=== PATIENT | female | born 1950 | race Caucasian/White ===

== ENCOUNTER 2017-05-01 15:34 | Emergency (ER) | payer OTHER ==
--- NOTE | 2017-05-01 16:28 | DIAGNOSTIC IMAGING REPORT ---
PROCEDURE: CT HEAD WITHOUT CONTRAST INDICATION: SYNCOPE TECHNIQUE: Axial CT images were acquired through the head. Coronal and sagittal reformations were created. COMPARISON: None. FINDINGS: No intracranial hemorrhage or extraaxial fluid collections. Ventricles are normal in size, shape and position. There is no mass, mass effect or midline shift. The brandon-white matter differentiation is normal. There is no edema. The calvarium is intact. The paranasal sinuses and mastoid air cells are normally aerated. The extracranial soft tissues and orbits are normal. IMPRESSION: 1. No CT evidence of acute intracranial process. 2. Findings discussed with Camilo at 04:[address] scans at this facility use dose modulation, iterative reconstruction, and/or weight-based dosing when appropriate to reduce radiation dose to as low as reasonably achievable.
--- NOTE | 2017-05-01 16:34 | DIAGNOSTIC IMAGING REPORT ---
PROCEDURE: XR CHEST 1 VIEW INDICATION: SYNCOPE TECHNIQUE: Single view chest. 1607 hours COMPARISON: None FINDINGS: Normal cardiomediastinal contour and central vessels. Clear lungs. No effusion or pneumothorax. Surgical clips in the left axilla. Intact osseous structures. IMPRESSION: 1. No evidence of acute cardiopulmonary disease.
--- NOTE | 2017-05-01 18:09 | DIAGNOSTIC IMAGING REPORT ---
PROCEDURE: ABDOMEN/PELVIS WITH CONTRAST CLINICAL INDICATION: ABDOMINAL PAIN TECHNIQUE: 125 ml of Isovue 300 were injected intravenously and axial images were obtained of the abdomen and pelvis with sagittal and coronal reformations. COMPARISON: None. FINDINGS: ABDOMEN: Clear lung bases. Heart size at the upper limits of normal. No hiatal hernia. The liver, gallbladder, adrenal glands, kidneys, pancreas and spleen are normal. Minor right renal parapelvic cyst in the lower pole. The abdominal aorta is normal in its course and caliber. Mild atherosclerosis. There are no suspicious calcifications, retroperitoneal adenopathy or masses. The stomach, upper bowel loops, and mesentery are normal. Intact anterior abdominal wall. No free fluid or inflammation. PELVIS: The appendix is not visible. The pelvic small bowel loops are normal. Normal amount of stool in the colon and rectum. The uterus (with a tiny exophytic fundal fibroid), ovaries, urinary bladder, and pelvic vessels are normal. No adenopathy or free fluid. Finger-like projection of low density material extending from the left external iliac/inguinal region into the femoral canal. This measures approximately 5.6 x 1.3 cm. Mild rightward curvature of the lumbar spine. Postsurgical changes of laminectomy and hardware fusion of L4-5. Chronic anterolisthesis L4 and L5. Degenerative disc endplate changes at L2-3 IMPRESSION: 1. No acute process. 2. Nonvisualization of the appendix. 3. Degeneration and postsurgical changes in the lumbar spine as described. 4. Probable small left femoral lymphocele or hernia. No inflammation. 5. Discussed with Dr. Page in the emergency room. All CT scans at this facility use dose modulation, iterative reconstruction, and/or weight-based dosing when appropriate to reduce radiation dose to as low as reasonably achievable.
--- NOTE | 2017-05-01 18:47 | ED ORDER SUMMARY ---
..... Patient: TAIWO SANCHEZ OrderSheet [facility] VisitID: [id number] [address] [place] [address] 66y, F Registration Date/Time: 05/01/2017 ORDER SHEET Weight: 70.3 kg (stated) Allergies: Sulfa, Penicillin, Penicillin, Tramadol, Amoxicillin, Codeine, Coxycycline, OxyContin, NSAIDs GENERAL ORDERS: Chest 1V Urgent (15:44 05/01/2017 Eliecer FAIRBANKS) (Ack 15:49 Maria De Jesus) (16:00 KKnejaylen R.N.) CT Head wo Cont Urgent (15:45 05/01/2017 Eliecer FAIRBANKS) (Ack 15:49 Maria De Jesus) (16:00 ARCHIEnejaylen R.N.) Chemical Waste Management Technician (Continuous) (15:45 05/01/2017 Eliecer FAIRBANKS) (Ack 16:03 Maria De Jesus) (16:15 Fideln R.N.) CBC w Diff Urgent (15:45 05/01/2017 Eliecer FAIRBANKS) (Ack 15:51 Maria De Jesus) (16:15 EHmariyan R.N.) CMP Urgent (15:45 05/01/2017 Eliecer FAIRBANKS) (Ack 15:51 Maria De Jesus) (16:15 EHassan R.N.) UA-Culture if indicated Urgent (15:45 05/01/2017 Eliecer FAIRBANKS) (Ack 15:49 Maria De Jesus) (16:31 Manish R.N.) Amylase Urgent (15:45 05/01/2017 Eliecer FAIRBANKS) (Ack 15:49 Maria De Jesus) (16:15 EHassan R.N.) Lipase Urgent (15:45 05/01/2017 Eliecer FAIRBANKS) (Ack 15:49 Maria De Jesus) (16:15 STEPHONassan R.N.) Oxygen (2 L/min) (NC) (15:45 05/01/2017 Eliecer FAIRBANKS) (Ack 16:03 Maria De Jesus) (16:15 EHassan R.N.) Pulse oximeter (15:45 05/01/2017 Eliecer FAIRBANKS) (Ack 16:03 Maria De Jesus) (16:15 EHassan R.N.) EKG - ER Stat (15:45 05/01/2017 Eliecer FAIRBANKS) (Ack 16:03 Maria De Jesus) (16:14 LNations ER Tech1) (16:15 Manish R.N.) Vitals - Orthostatic (15:45 05/01/2017 Eliecer FAIRBANKS) (Ack 16:03 Maria De Jesus) (16:15 EHassan R.N.) Urine Drug Screen Urgent (15:56 05/01/2017 Eliecer FAIRBANKS) (Ack 16:04 Maria De Jesus) (16:31 EHassan R.N.) Ethyl Alcohol Urgent (15:56 05/01/2017 Eliecer FAIRBANKS) (Ack 16:04 Maria De Jesus) (16:30 KKnebel R.N.) Acetaminophen Level Urgent (16:42 05/01/2017 Eliecer FAIRBANKS) (Ack 16:46 Maria De Jesus) (19:00 KKnebel R.N.) Salicylate Level Urgent (16:42 05/01/2017 Eliecer FAIRBANKS) (Ack 16:46 Maria De Jesus) (19:00 KKnebel R.N.) CT Abd/Pel w Cont (No) (See report) Urgent (17:08 05/01/2017 Eliecer FAIRBANKS) (Ack 17:09 Maria De Jesus) (19:00 KKnebel R.N.) MEDICATION ORDERS: KCl PO 20 meq (NOW) (18:20 05/01/2017 Eliecer FAIRBANKS) (18:46 KKnebel R.N.) IV FLUIDS: IV Saline Lock (15:45 05/01/2017 Eliecer FAIRBANKS) (16:15 Manish R.N.) IV NS : initial bolus 500 mL (1000 mL/hr), then 125 mL/hr for 4h (NOW); Urgent (17:06 05/01/2017 Eliecer FAIRBANKS) (17:18 KKnebel R.N.) ORDER SHEET NOTES: [Electronically signed by Miriam Orozco R.N. (19:05/01/2017)] [Electronically signed by Frank Page MD (21:36 05/01/2017)] [Electronically locked/signed by Miriam Orozco R.N. (19:01 05/01/2017)]
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
--- NOTE | 2017-05-01 18:47 | ED NURSING NOTES ---
Clinical Report - Nurses [facility] [address] [place] [address] 05/01/2017 15:33 Patient: TAIWO SANCHEZ TRIAGE Triage time 15:41 May 01 2017. Acuity: LEVEL 3. Chief Complaint: (syncopal episodes last night). Alert. No acute distress. [place]ER[place] COMA SCORE: [place] Coma Scale: 15- eyes open spontaneously (4); best verbal response- oriented x 4 (5); best motor response- obeys commands (6). --15:53 Miriam Orozco R.N. 15:41 05/01/17. BP: 163/72. HR: 99. RR: 20. O2 saturation: 100%. Temp: 100.9 F. Pain level now: 07/06. --15:53 Miriam Orozco R.N. Weight: 70.3 kg stated. Height/Length: 64 inches Per Patient. BMI: 26.6. --15:53 Miriam Orozco R.N. Medications Hydrocodone-Acetaminophen Oral. --15:43 Miriam Orozco R.N. HydrOXYzine HCl Intramuscular. --15:44 Miriam Orozco R.N. Gabapentin Oral. --15:44 Miriam Orozco R.N. Levothyroxine Sodium Oral. --15:44 Miriam Orozco R.N. Amphetamine-Dextroamphet ER Oral. --15:44 Miriam Orozco R.N. Dicyclomine HCl Oral. --15:44 Miriam Orozco R.N. FLUoxetine HCl Oral. --15:45 Miriam Orozco R.N. LORazepam Oral. --15:45 Miriam Orozco R.N. Tizanidine. --15:45 Miriam Orozco R.N. Multiple Vitamins. --15:45 Miriam Orozco R.N. Vitamin c. --15:45 Miriam Orozco R.N. Lansoprazole. --15:45 Miriam Orozco R.N. MethylPREDNISolone Oral. --15:46 Miriam Orozco R.N. Ondansetron. --15:46 Miriam Orozco R.N. Pantoprazole. --15:46 Miriam Orozco R.N. Oxybutynin. --15:46 Miriam Orozco R.N. Methocarbamol. --15:46 Miriam Orozco R.N. Allergies Sulfa. --15:47 Miriam Orozco R.N. Penicillin. --15:47 Miriam Orozco R.N. Penicillin. --15:47 Miriam Orozco R.N. Tramadol. --15:47 Miriam Orozco R.N. Amoxicillin. --15:47 Miriam Orozco R.N. Codeine. --15:47 Miriam Orozco R.N. Coxycycline. --15:48 Miriam Orozco R.N. OxyContin. --15:48 Miriam Orozco R.N. NSAIDs. --15:48 Miriam Orozco R.N. History Arrived by private vehicle. Historian: patient. This started last night. ( burning on tongue). She has had a headache and recent fall. Treatment MEDIA CLERK: None. --15:53 Miriam Orozco R.N. PAST MEDICAL HX: Immunizations: up-to-date. Denies current . SOCIAL HX: Never smoker. Occasional alcohol use. No drug use. No infectious disease exposure. SELF HARM ASSESSMENT: A self harm assessment was performed. The patient answered "no" to the question "Do you have thoughts of harming or killing yourself?". FALL RISK ASSESSMENT: Fall risk assessment completed. No fall risk identified. NUTRITIONAL RISK ASSESSMENT: The nutritional risk assessment revealed no deficiencies. FUNCTIONAL ASSESSMENT: Functional assessment: no impairments noted. LEARNING NEEDS ASSESSMENT: The learning needs assessment revealed no barriers. ABUSE ASSESSMENT: Abuse assessment: The patient was asked "Do you feel safe in your home?". SKIN INTEGRITY ASSESSMENT: Skin integrity risk assessment completed. No skin integrity risk identified. --15:54 Miriam Orozco R.N. PROBLEMS: Depression. Osteoarthritis. Thyroid disease. Sleep apnea. Heart murmur. Breast cancer. GERD. Headaches. IBS. Bursitis. Fibromyalgia. Arthritis. Spinal stenosis. --15:50 Miriam Orozco R.N. ADDITIONAL SURGERIES: Appendectomy. Colonoscopy. Hand. Kneee. Laminectomy. Lumbar fusion. Lumpectomy. Septoplasty. Shoulder. Upper GI Endoscopy. --15:50 Miriam Orozco R.N. Interventions ID band on patient. To room. --15:53 Miriam Orozco R.N. PHYSICAL ASSESSMENT To room via stretcher. GENERAL / NEURO / PSYCH: Awake. Speech normal. Mood/affect abnormal (anxious and bizarre). She has had pre-existing weakness of the right arm. HEENT: No trouble handling secretions. ( c/o tongue burning). RESPIRATORY: Respirations not labored. CVS: Capillary refill less than 2 seconds. SKIN: Skin is warm and dry. --15:57 Miriam Orozco R.N. NURSING PROGRESS NOTES Patient gowned. Head of bed elevated. Patient identifiers checked. Call light placed in reach. Side rails up x 2. Bed placed in lowest position. Brakes of bed on. --15:57 Miriam Orozco R.N. Patient transported to radiology by stretcher with tech. (15:57 May 01 2017). --15:57 Miriam Orozco R.N. 16:15 05/01/2017 Site #1 started via IV in the left antecubital space with an 20g angiocath. Blood drawn: rainbow set. Labeled in the presence of the patient and sent to the lab. --16:15 Danay Scott R.N. EKG time: (1913). EKG was ordered, performed by a tech and shown to the ED physician. --16:15 Iris Bronson ER Tech1 16:18 05/01/17. BP: 154/57 (regular adult cuff) taken on the left arm, via an automated monitor, while lying. HR: 64. RR: 18. O2 saturation: 96% on room air. --16:19 Danay Scott R.N. Cardiac rhythm: normal sinus rhythm. --16:19 Danay Scott R.N. Cardiac rhythm: normal sinus rhythm. --16:20 Danay Scott R.N. 16:18 05/01/17. BP: 146/61 (regular adult cuff) taken on the left arm, via an automated monitor, while sitting. HR: 51. RR: 18. O2 saturation: 96% on room air. Pain level now: 05/06. --16:20 Danay Scott R.N. 16:19 05/01/17. BP: 108/76 (regular adult cuff) taken on the left arm, via an automated monitor, while standing. HR: 51. RR: 18. O2 saturation: 96% on room air. Pain level now: 05/06. --16:20 Danay Scott R.N. Cardiac rhythm: normal sinus rhythm. --16:20 Danay Scott R.N. Patient ID band checked for patient name, birthdate and medical record number: patient confirmed. Blood samples drawn from the left antecubital space IV site by nurse per protocol ; labeled in presence of the patient and sent to lab: flo set. --16:21 Danay Scott R.N. 16:28 05/01/17. HR: 93 (regular). Temp: 101.2 F. Pain level now: 05/06. --16:29 Danay Scott R.N. Patient gowned. Reassurance given. The patient is calm. Overall patient status is the same- she states feels the same. GENERAL / NEURO / PSYCH: The patient reports headache. Appears anxious. GI / : Denies nausea. Two patient identifiers checked. Call light placed in reach. Side rails up. Bed placed in lowest position. Brakes of bed on. --16:29 Danay Scott R.N. 17:18 05/01/2017 Started bag #1 1000 mL IV Fluids IV NS (Saline); bolus of 500 mL over 30 minute(s) via site #1 via IV pump. Allergies verified and confirmed 5 rights. IV patency established. IV site checked: no pain, redness, or swelling. IV flushed thoroughly pre- and post-medication administration. --17:18 Miriam Orozco R.N. Patient returned from CT by wheelchair with tech. (17:44). --17:44 Cindy Hernandez R.N. ( Pt reconnected to [facility]). --17:44 Cindy Hernandez R.N. Assisted patient to bathroom, to stand and to ambulate; tolerated well. --18:13 Juan Xiao R.N. 18:35 05/01/2017 KCL (Potassium Chloride ER) PO Tablets 20 meq given. Allergies verified and confirmed 5 rights. --18:46 Miriam Orozco R.N. 18:46 05/01/2017 Site #1 removed upon discharge. Bandage applied. --18:46 Miriam Orozco R.N. 18:46 05/01/2017 IV Fluids IV NS Discontinued: bag #1 discontinued upon discharge. Total amount infused: 600 mL. --18:46 Miriam Orozco R.N. DISPOSITION / DISCHARGE Departure time: 18:55 May 01 2017. Condition at departure: improved. No learning barriers present. Discharge instructions provided and reviewed with the patient. Reviewed referral to a primary care physician for followup. Patient verbalized understanding. Written instructions provided in Grenadian. The patient was discharged home. She left the Emergency Department ambulatory and via taxi. FALL RISK ASSESSMENT: Fall risk assessment completed. No fall risk identified. --18:55 Miriam Orozco R.N. 18:45 05/01/17. BP: 164/69. HR: 97. RR: 16. O2 saturation: 98%. Pain level now: 03/06. --18:55 Miriam Orozco R.N. Locked/Released at 05/01/2017 19:01 by Miriam Orozco R.N.
--- NOTE | 2017-05-01 18:47 | ED NURSING NOTES ---
Clinical Report - Nurses [facility] [address] [place] [address] 05/01/2017 15:33 Patient: TAIWO SANCHEZ TRIAGE Triage time 15:41 May 01 2017. Acuity: LEVEL 3. Chief Complaint: (syncopal episodes last night). Alert. No acute distress. LAVERNE COMA SCORE: Trilla Coma Scale: 15- eyes open spontaneously (4); best verbal response- oriented x 4 (5); best motor response- obeys commands (6). --15:53 Miriam Orozco R.N. 15:41 05/01/17. BP: 163/72. HR: 99. RR: 20. O2 saturation: 100%. Temp: 100.9 F. Pain level now: 07/06. --15:53 Miriam Orozco R.N. Weight: 70.3 kg stated. Height/Length: 64 inches Per Patient. BMI: 26.6. --15:53 Miriam Orozco R.N. Medications Hydrocodone-Acetaminophen Oral. --15:43 Miriam Orozco R.N. HydrOXYzine HCl Intramuscular. --15:44 Miriam Orozco R.N. Gabapentin Oral. --15:44 Miriam Orozco R.N. Levothyroxine Sodium Oral. --15:44 Miriam Orozco R.N. Amphetamine-Dextroamphet ER Oral. --15:44 Miriam Orozco R.N. Dicyclomine HCl Oral. --15:44 Miriam Orozco R.N. FLUoxetine HCl Oral. --15:45 Miriam Orozco R.N. LORazepam Oral. --15:45 Miriam Orozco R.N. Tizanidine. --15:45 Miriam Orozco R.N. Multiple Vitamins. --15:45 Miriam Orozco R.N. Vitamin c. --15:45 Miriam Orozco R.N. Lansoprazole. --15:45 Miriam Orozco R.N. MethylPREDNISolone Oral. --15:46 Miriam Orozco R.N. Ondansetron. --15:46 Miriam Orozco R.N. Pantoprazole. --15:46 Miriam Orozco R.N. Oxybutynin. --15:46 Miriam Orozco R.N. Methocarbamol. --15:46 Miriam Orozco R.N. Allergies Sulfa. --15:47 Miriam Orozco R.N. Penicillin. --15:47 Miriam Orozco R.N. Penicillin. --15:47 Miriam Orozco R.N. Tramadol. --15:47 Miriam Orozco R.N. Amoxicillin. --15:47 Miriam Orozoc R.N. Codeine. --15:47 Miriam Orozco R.N. Coxycycline. --15:48 Miriam Orozco R.N. OxyContin. --15:48 Miriam Orozco R.N. NSAIDs. --15:48 Miriam Orozco R.N. History Arrived by private vehicle. Historian: patient. This started last night. ( burning on tongue). She has had a headache and recent fall. 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 --15:53 Miriam Orozco R.N. PAST MEDICAL HX: Immunizations: up-to-date. Denies current . SOCIAL HX: Never smoker. Occasional alcohol use. No drug use. No infectious disease exposure. SELF HARM ASSESSMENT: A self harm assessment was performed. The patient answered "no" to the question "Do you have thoughts of harming or killing yourself?". FALL RISK ASSESSMENT: Fall risk assessment completed. No fall risk identified. NUTRITIONAL RISK ASSESSMENT: The nutritional risk assessment revealed no deficiencies. FUNCTIONAL ASSESSMENT: Functional assessment: no impairments noted. LEARNING NEEDS ASSESSMENT: The learning needs assessment revealed no barriers. ABUSE ASSESSMENT: Abuse assessment: The patient was asked "Do you feel safe in your home?". SKIN INTEGRITY ASSESSMENT: Skin integrity risk assessment completed. No skin integrity risk identified. --15:54 Miriam Orozco R.N. PROBLEMS: Depression. Osteoarthritis. Thyroid disease. Sleep apnea. Heart murmur. Breast cancer. GERD. Headaches. IBS. Bursitis. Fibromyalgia. Arthritis. Spinal stenosis. --15:50 Miriam Orozco R.N. ADDITIONAL SURGERIES: Appendectomy. Colonoscopy. Hand. Kneee. Laminectomy. Lumbar fusion. Lumpectomy. Septoplasty. Shoulder. Upper GI Endoscopy. --15:50 Miriam Orozco R.N. Interventions ID band on patient. To room. --15:53 Miriam Orozco R.N. PHYSICAL ASSESSMENT To room via stretcher. GENERAL / NEURO / PSYCH: Awake. Speech normal. Mood/affect abnormal (anxious and bizarre). She has had pre-existing weakness of the right arm. HEENT: No trouble handling secretions. ( c/o tongue burning). RESPIRATORY: Respirations not labored. CVS: Capillary refill less than 2 seconds. SKIN: Skin is warm and dry. --15:57 Miriam Orozco R.N. NURSING PROGRESS NOTES Patient gowned. Head of bed elevated. Patient identifiers checked. Call light placed in reach. Side rails up x 2. Bed placed in lowest position. Brakes of bed on. --15:57 Miriam Orozco R.N. Patient transported to radiology by stretcher with tech. (15:57 May 01 2017). --15:57 Miriam Orozco R.N. 16:15 05/01/2017 Site #1 started via IV in the left antecubital space with an 20g angiocath. Blood drawn: rainbow set. Labeled in the presence of the patient and sent to the lab. --16:15 Danay Scott R.N. EKG time: (1615). EKG was ordered, performed by a tech and shown to the ED physician. --16:15 Iris Bronson ER Tech1 16:18 05/01/17. BP: 154/57 (regular adult cuff) taken on the left arm, via an automated monitor, while lying. HR: 64. RR: 18. O2 saturation: 96% on room air. --16:19 Danay Scott R.N. Cardiac rhythm: normal sinus rhythm. --16:19 Danay Scott R.N. Cardiac rhythm: normal sinus rhythm. --16:20 Danay Scott R.N. 16:18 05/01/17. BP: 146/61 (regular adult cuff) taken on the left arm, via an automated monitor, while sitting. HR: 51. RR: 18. O2 saturation: 96% on room air. Pain level now: 05/06. --16:20 Danay Scott R.N. 16:19 05/01/17. BP: 108/76 (regular adult cuff) taken on the left arm, via an automated monitor, while standing. HR: 51. RR: 18. O2 saturation: 96% on room air. Pain level now: 05/06. --16:20 Danay Scott R.N. Cardiac rhythm: normal sinus rhythm. --16:20 Danay Scott R.N. Patient ID band checked for patient name, birthdate and medical record number: patient confirmed. Blood samples drawn from the left antecubital space IV site by nurse per protocol ; labeled in presence of the patient and sent to lab: flo set. --16:21 Danay Scott R.N. 16:28 05/01/17. HR: 93 (regular). Temp: 101.2 F. Pain level now: 05/06. --16:29 Danay Scott R.N. Patient gowned. Reassurance given. The patient is calm. Overall patient status is the same- she states feels the same. GENERAL / NEURO / PSYCH: The patient reports headache. Appears anxious. GI / : Denies nausea. Two patient identifiers checked. Call light placed in reach. Side rails up. Bed placed in lowest position. Brakes of bed on. --16:29 Danay Scott R.N. 17:18 05/01/2017 Started bag #1 1000 mL IV Fluids IV NS (Saline); bolus of 500 mL over 30 minute(s) via site #1 via IV pump. Allergies verified and confirmed 5 rights. IV patency established. IV site checked: no pain, redness, or swelling. IV flushed thoroughly pre- and post-medication administration. --17:18 Miriam Orozco R.N. Patient returned from CT by wheelchair with tech. (17:44). --17:44 Cindy Hernandez R.N. ( Pt reconnected to [facility]). --17:44 Cindy Hernandez R.N. Assisted patient to bathroom, to stand and to ambulate; tolerated well. --18:13 Juan Xiao R.N. 18:35 05/01/2017 KCL (Potassium Chloride ER) PO Tablets 20 meq given. Allergies verified and confirmed 5 rights. --18:46 Miriam Orozco R.N. 18:46 05/01/2017 Site #1 removed upon discharge. Bandage applied. --18:46 Miriam Orozco R.N. 18:46 05/01/2017 IV Fluids IV NS Discontinued: bag #1 discontinued upon discharge. Total amount infused: 600 mL. --18:46 Miriam Orozco R.N. DISPOSITION / DISCHARGE Departure time: 18:55 May 01 2017. Condition at departure: improved. No learning barriers present. Discharge instructions provided and reviewed with the patient. Reviewed referral to a primary care physician for followup. Patient verbalized understanding. Written instructions provided in British. The patient was discharged home. She left the Emergency Department ambulatory and via taxi. FALL RISK ASSESSMENT: Fall risk assessment completed. No fall risk identified. --18:55 Miriam Orozco R.N. 18:45 05/01/17. BP: 164/69. HR: 97. RR: 16. O2 saturation: 98%. Pain level now: 03/06. --18:55 Miriam Orozco R.N. Locked/Released at 05/01/2017 19:01 by Miriam Orozco R.N.
--- NOTE | 2017-05-01 18:47 | ED ORDER SUMMARY ---
..... Patient: TAIWO SANCHEZ OrderSheet [facility] VisitID: [id number] [address] [place] [address] 66y, F Registration Date/Time: 05/01/2017 ORDER SHEET Weight: 70.3 kg (stated) Allergies: Sulfa, Penicillin, Penicillin, Tramadol, Amoxicillin, Codeine, Coxycycline, OxyContin, NSAIDs GENERAL ORDERS: Chest 1V Urgent (15:44 05/01/2017 Eliecer FAIRBANKS) (Ack 15:49 Maria De Jesus) (16:00 KKnejaylen R.N.) CT Head wo Cont Urgent (15:45 05/01/2017 Eliecer FAIRBANKS) (Ack 15:49 Maria De Jesus) (16:00 ARCHIEnejaylen R.N.) Coffee Machine Technician (Continuous) (15:45 05/01/2017 Eliecer FAIRBANKS) (Ack 16:03 Maria De Jesus) (16:15 Fideln R.N.) CBC w Diff Urgent (15:45 05/01/2017 Eliecer FAIRBANKS) (Ack 15:51 Maria De Jesus) (16:15 EHmariyan R.N.) CMP Urgent (15:45 05/01/2017 Eliecer FAIRBANKS) (Ack 15:51 Maria De Jesus) (16:15 EHassan R.N.) UA-Culture if indicated Urgent (15:45 05/01/2017 Eliecer FAIRBANKS) (Ack 15:49 Maria De Jesus) (16:31 Manish R.N.) Amylase Urgent (15:45 05/01/2017 Eliecer FAIRBANKS) (Ack 15:49 Maria De Jesus) (16:15 EHassan R.N.) Lipase Urgent (15:45 05/01/2017 Eliecer FAIRBANKS) (Ack 15:49 Maria De Jesus) (16:15 STEPHONassan R.N.) Oxygen (2 L/min) (NC) (15:45 05/01/2017 Eliecer FAIRBANKS) (Ack 16:03 Maria De Jesus) (16:15 EHassan R.N.) Pulse oximeter (15:45 05/01/2017 Eliecer FAIRBANKS) (Ack 16:03 Maria De Jesus) (16:15 EHassan R.N.) EKG - ER Stat (15:45 05/01/2017 Eliecer FAIRBANKS) (Ack 16:03 Maria De Jesus) (16:14 LNations ER Tech1) (16:15 Manish R.N.) Vitals - Orthostatic (15:45 05/01/2017 Eliecer FAIRBANKS) (Ack 16:03 Maria De Jesus) (16:15 EHassan R.N.) Urine Drug Screen Urgent (15:56 05/01/2017 Eliecer FAIRBANKS) (Ack 16:04 Maria De Jesus) (16:31 EHassan R.N.) Ethyl Alcohol Urgent (15:56 05/01/2017 Eliecer FAIRBANKS) (Ack 16:04 Maria De Jesus) (16:30 KKnebel R.N.) Acetaminophen Level Urgent (16:42 05/01/2017 Eliecer FAIRBANKS) (Ack 16:46 Maria De Jesus) (19:00 KKnebel R.N.) Salicylate Level Urgent (16:42 05/01/2017 Eliecer FAIRBANKS) (Ack 16:46 Maria De Jesus) (19:00 KKnebel R.N.) CT Abd/Pel w Cont (No) (See report) Urgent (17:08 05/01/2017 Eliecer FAIRBANKS) (Ack 17:09 Maria De Jesus) (19:00 KKnebel R.N.) MEDICATION ORDERS: KCl PO 20 meq (NOW) (18:20 05/01/2017 Eliecer FAIRBANKS) (18:46 KKnebel R.N.) IV FLUIDS: IV Saline Lock (15:45 05/01/2017 Eliecer FAIRBANKS) (16:15 Manish R.N.) IV NS : initial bolus 500 mL (1000 mL/hr), then 125 mL/hr for 4h (NOW); Urgent (17:06 05/01/2017 Eliecer FAIRBANKS) (17:18 KKnebel R.N.) ORDER SHEET NOTES: [Electronically signed by Miriam Orozco R.N. (19:05/01/2017)] [Electronically signed by Frank Page MD (21:36 05/01/2017)] [Electronically locked/signed by Miriam Orozco R.N. (19:01 05/01/2017)]
--- NOTE | 2017-05-01 21:37 | ED MED RECONCILIATION SUMMARY ---
Patient: TAIWO SANCHEZ Medication Reconciliation Report [facility] VisitID: [id number] [address] [place] [address] 66y, F Registration Date/Time: 05/01/2017 Weight: 70.3 kg Height/Length: 64 in. BMI: 26.6 ALLERGIES: Amoxicillin, Codeine, Coxycycline, NSAIDs, OxyContin, Penicillin, Penicillin, Sulfa, Tramadol The patient's Home Medications are listed below: CONTINUE TAKING THE FOLLOWING MEDICATIONS: Amphetamine-Dextroamphet ER Oral Dicyclomine HCl Oral FLUoxetine HCl Oral Gabapentin Oral Lansoprazole Levothyroxine Sodium Oral MethylPREDNISolone Oral Multiple Vitamins Ondansetron Oxybutynin Pantoprazole Tizanidine Vitamin c CONTINUE TAKING THE FOLLOWING MEDICATIONS UNTIL YOU CHECK WITH YOUR PHYSICIAN: Hydrocodone-Acetaminophen Oral HydrOXYzine HCl Intramuscular LORazepam Oral The source(s) of the original Home Medication information: Not obtained. The following Medications were given to the patient in the Emergency Department: IV NS IV Fluids bolus 500 mL over 30 minute(s), administered: 05/01/2017 5:18:00 PM KCL [PO] PO 20 meq, administered: 05/01/2017 6:35:00 PM The following Medications were prescribed to the patient: None.
--- NOTE | 2017-05-01 21:37 | ED MAR SUMMARY ---
..... Medication Administration Record [facility] [address] [place] [address] Patient: TAIWO SANCHEZ Visit ID: [id number] 66y, F Weight: 70.3 kg Height/Length: 64 in BMI: 26.6 ALLERGIES: NSAIDs, OxyContin, Coxycycline, Codeine, Amoxicillin, Tramadol, Penicillin, Penicillin, Sulfa Start 17:18 05/01/2017 Miriam Orozco R.N., Stop 18:46 05/01/2017 Miriam Orozco R.N. Medication Administered: IV NS (SALINE), Dose: IV Fluids, Bolus: 500 mL over 30 minute(s), Dispensed: 1000 mL bag, Site: #1 left . Medication Ordered: IV NS : initial bolus 500 mL (1000 mL/hr), then 125 mL/hr for 4h (NOW); Urgent. Given 18:35 05/01/2017 Miriam Orozco R.N. Medication Administered: KCL [PO] (POTASSIUM CHLORIDE ER), Dose: 20 meq Tablets PO. Medication Ordered: KCl PO 20 meq (NOW).
--- NOTE | 2017-05-01 21:37 | ED DISCHARGE INSTRUCTIONS ---
Patient: TAIWO SANCHEZ General Instructions [facility] VisitID: [id number] [place] [address] 66y, F Registration Date/Time: 05/01/2017 Fever Syncope. Chronic abdominal pain of undetermined cause. Hypokalemia INSTRUCTIONS Drink plenty of fluids. Warnings: Further evaluation is necessary. GENERAL WARNINGS: Return or contact your physician immediately if your condition worsens or changes unexpectedly, if not improving as expected, or if other problems arise. Your Current Medications: CONTINUE TAKING THE FOLLOWING MEDICATIONS: Amphetamine-Dextroamphet ER Oral. Dicyclomine HCl Oral. FLUoxetine HCl Oral. Gabapentin Oral. Lansoprazole*. Levothyroxine Sodium Oral. MethylPREDNISolone Oral. Multiple Vitamins*. Ondansetron*. Oxybutynin*. Pantoprazole*. Tizanidine*. Vitamin c*. CONTINUE TAKING THE FOLLOWING MEDICATIONS UNTIL YOU CHECK WITH YOUR PHYSICIAN: Hydrocodone-Acetaminophen Oral. HydrOXYzine HCl Intramuscular. LORazepam Oral. Follow-up: Return to the emergency department if not able to be seen by your doctor tomorrow. Follow up with your doctor RADHA JUAREZ tomorrow. Call for an appointment. Understanding of the discharge instructions verbalized by patient. ADDITIONAL INFORMATION Febrile Illness, Uncertain Cause (Adult) You have a fever, but the cause is not certain. A fever is a natural reaction of the body to an illness such as infections due to a virus or bacteria. In most cases, the temperature itself is not harmful. It actually helps the body fight infections. A fever does not need to be treated unless you feel very uncomfortable. Sometimes a fever can be an early sign of a more serious infection. Therefore, you should watch for the signs listed below. Home Care: If signs and symptoms are severe, rest at home for the first 2-3 days. When you resume activity, don't let yourself get too tired. Stay away from cigarette smoke (yours and other peoples). You may use acetaminophen (Tylenol) or ibuprofen (Motrin, Advil) to control fever or pain, unless another medicine was prescribed. NOTE: If you have chronic liver or kidney disease or ever had a stomach ulcer or GI bleeding, talk with your doctor before using these medicines. (Aspirin should never be used in anyone under 18 years of age who is ill with a fever. It may cause severe liver damage.) Your appetite may be poor, so a light diet is fine. Avoid dehydration by drinking 6-8 glasses of fluid per day (water, sport drinks such as Gatorade, sodas without caffeine, juices, tea, soup). Extra fluid will help loosen secretions in the nose and lungs. Ueur-cld-yaigide products will not shorten the duration of the illness but may be helpful for the following symptoms: cough (Robitussin DM); sore throat (Chloraseptic lozenges or spray); nasal and sinus congestion (Actifed or Sudafed). NOTE: Do not use decongestants if you have high blood pressure. Follow Up with your doctor or as advised if you do not start to improve over the next week. Get Prompt Medical Attention if any of the following occur: Cough with lots of colored sputum (mucus) or blood in your sputum Chest pain, shortness of breath, wheezing or difficulty breathing Severe headache, face, neck, throat or ear pain Feeling drowsy or confused Abdominal pain, repeated vomiting or diarrhea Joint pain or a new rash Burning when urinating Fever of 100.4F (38C) oral or higher, not better with fever medication Feeling weak or dizzy Convulsion Fainting:Uncertain Cause Fainting (syncope) is a temporary loss of consciousness ("passing out"). It occurs when blood flow to the brain is reduced. Near-fainting ("near-syncope") is very similar to fainting, but you do not fully "pass out". The common minor causes of fainting include: sudden fear, pain, nausea, emotional stress and overexertion. Suddenly standing up after sitting or lying for a long time can also cause fainting. The more serious causes for fainting are due to either a very slow or very fast or very slow heart beat ("arrhythmia"), other types of heart disease, dehydration, blood loss, seizure, stroke or ruptured blood vessel in the brain. Taking too much high blood pressure medicine can also cause low blood pressure and fainting. The exact cause of your episode is not certain. However, the tests today did not show any of the serious causes of fainting. Sometimes further testing is needed to find out if a serious problem exists. Therefore, it is important that you follow-up with your doctor as advised. Home Care: 1) Rest today. You may resume your normal activities when you are feeling back to normal. It is best to remain with someone who can check on you for the next 24 hours to watch for another episode of fainting. 2) If you become light-headed or dizzy, lie down immediately or sit with your head between your knees. 3) Because we do not know the exact cause of your near fainting spell, it is possible for another spell to occur without warning. Therefore, do not drive a car or operate dangerous equipment, do not take a bath alone (use a shower instead) and do not swim alone until your doctor says that you are no longer in danger of having another fainting spell. Follow Up with your doctor as advised. Get Prompt Medical Attention if any of the following occur: -- Another fainting spell occurs, which is not explained by the common causes listed above -- Chest, arm, neck, jaw, back or abdominal pain -- Shortness of breath -- Severe headache or seizure -- Blood in vomit, stools (black or red color) -- Unexpected vaginal bleeding -- Palpitations (very rapid or very slow or irregular heart beat) -- Signs of stroke: Weakness of an arm or leg or one side of the face Difficulty with speech or vision Extreme drowsiness, confusion, dizziness or fainting Abdominal Pain, Unknown Cause (Female) The exact cause of your abdominal (stomach) pain is not certain. This does not mean that this is something to worry about, or the right tests were not done. Everyone likes to know the exact cause of the problem, but sometimes with abdominal pain, there is no clear-cut cause, and this could be a good thing. The good news is that your symptoms can be treated, and you will feel better. Your condition does not seem serious now; however, sometimes the signs of a serious problem may take more time to appear. For this reason,it is important for you to watch for any new symptoms, problems,or worsening of your condition. Over the next few days, the abdominal pain may come and go, or be continuous. Other common symptoms can include nausea and vomiting. Sometimes it can be difficult to tell if you feel nauseous, you may just feel bad and not associate that feeling with nausea. Constipation, diarrhea, and a fever may go along with the pain. The pain may continue even if treated correctly over the following days. Depending on how things go, sometimes the cause can become clear and may require further or different treatment. Additional evaluations, medications, or tests may be needed. Home care Your health care provider may prescribe medications for pain, symptoms, or an infection. Follow the health care provider's instructions for taking these medications. General care Rest until your next exam. No strenuous activities. Try to find positions that ease discomfort. A small pillow placed on the abdomen may help relieve pain. Something warm on your abdomen (such as a heating pad) may help, but be careful not to burn yourself. Diet Do not force yourself to eat, especially if having cramps, vomiting, or diarrhea. Water is important so you do not get dehydrated. Soup may also be good. Sports drinks may also help, especially if they are not too acidic. Make sure you don't drink sugary drinks as this can make things worse. Take liquids in small amounts. Do not guzzle them. Caffeine sometimes makes the pain and cramping worse. Avoid dairy products if you have vomiting or diarrhea. Don't eat large amounts at a time. Wait a few minutes between bites. Eat a diet low in fiber (called a low-residue diet). Foods allowed include refined breads, white rice, fruit and vegetable juices without pulp, tender meats. These foods will pass more easily through the intestine. Avoid whole-grain foods, whole fruits and vegetables, meats, seeds and nuts, fried or fatty foods, dairy, alcohol and spicy foods until your symptoms go away. Follow-up care Follow up with your health care provider as instructed, or if your pain does not begin to improve in the next 24 hours. When to seek medical care Seek prompt medical care if any of the following occur: Pain gets worse or moves to the right lower abdomen New or worsening vomiting or diarrhea Swelling of the abdomen Unable to pass stool for more than three days Fever of 100.4F (38C) or higher, or as directed by your healthcare provider. Blood in vomit or bowel movements (dark red or black color) Jaundice (yellow color of eyes and skin) Weakness, dizziness Chest, arm, back, neck or jaw pain Unexpected vaginal bleeding or missed period Call 911 Call emergency services if any of the following occur: Trouble breathing Confusion Fainting or loss of consciousness Rapid heart rate Seizure Hypokalemia Hypokalemia means a low level of potassium in the blood. This most often occurs in patients who take diuretics (water pills). It can also occur due to severe vomiting or diarrhea. A mild case usually causes no symptoms. It is only found with blood testing. More severe potassium loss causes generalized weakness, muscle or abdominal cramping, heart palpitations (rapid or irregular heartbeats) and low blood pressure. Home Care: 1) Take any potassium supplements prescribed. 2) Eat foods rich in potassium. The highest amount is found in artichoke, baked potatoes, spinach, cantaloupe, honeydew melon, cod, halibut, salmon, and scallops. White, red, or banda beans are also very good sources. A modest amount is found in orange juice, bananas, carrots, and tomato juice. 3) Certain types of diuretics (water pills), such as Lasix (furosemide), require that you take potassium supplements for as long as you take the diuretic pills. If you are taking a diuretic, discuss the need for potassium supplements with your doctor. Follow Up with your doctor for a repeat blood test within the next week or as advised by our staff. Get Prompt Medical Attention if any of the following occur: -- Increased weakness -- Feeling dizzy -- Irregular heartbeat, extra beats or very fast heart rate -- Fainting spell You have been given the following additional information: Febrile Illness, Uncertain Cause (Adult) Syncope, Unk Cause Abdominal Pain, Unknown Cause, (Female) Hypokalemia (Electronically signed by Frank Page MD 05/01/2017 21:36)
--- NOTE | 2017-05-01 21:37 | ED MED RECONCILIATION SUMMARY ---
Patient: TAIWO SANCHEZ Medication Reconciliation Report [facility] VisitID: [id number] [address] [place] [address] 66y, F Registration Date/Time: 05/01/2017 Weight: 70.3 kg Height/Length: 64 in. BMI: 26.6 ALLERGIES: Amoxicillin, Codeine, Coxycycline, NSAIDs, OxyContin, Penicillin, Penicillin, Sulfa, Tramadol The patient's Home Medications are listed below: CONTINUE TAKING THE FOLLOWING MEDICATIONS: Amphetamine-Dextroamphet ER Oral Dicyclomine HCl Oral FLUoxetine HCl Oral Gabapentin Oral Lansoprazole Levothyroxine Sodium Oral MethylPREDNISolone Oral Multiple Vitamins Ondansetron Oxybutynin Pantoprazole Tizanidine Vitamin c CONTINUE TAKING THE FOLLOWING MEDICATIONS UNTIL YOU CHECK WITH YOUR PHYSICIAN: Hydrocodone-Acetaminophen Oral HydrOXYzine HCl Intramuscular LORazepam Oral The source(s) of the original Home Medication information: Not obtained. The following Medications were given to the patient in the Emergency Department: IV NS IV Fluids bolus 500 mL over 30 minute(s), administered: 05/01/2017 5:18:00 PM KCL [PO] PO 20 meq, administered: 05/01/2017 6:35:00 PM The following Medications were prescribed to the patient: None.
--- NOTE | 2017-05-01 21:37 | ED MAR SUMMARY ---
..... Medication Administration Record [facility] [address] [place] [address] Patient: TAIWO SANCHEZ Visit ID: [id number] 66y, F Weight: 70.3 kg Height/Length: 64 in BMI: 26.6 ALLERGIES: NSAIDs, OxyContin, Coxycycline, Codeine, Amoxicillin, Tramadol, Penicillin, Penicillin, Sulfa Start 17:18 05/01/2017 Miriam Orozco R.N., Stop 18:46 05/01/2017 Miriam Orozco R.N. Medication Administered: IV NS (SALINE), Dose: IV Fluids, Bolus: 500 mL over 30 minute(s), Dispensed: 1000 mL bag, Site: #1 left . Medication Ordered: IV NS : initial bolus 500 mL (1000 mL/hr), then 125 mL/hr for 4h (NOW); Urgent. Given 18:35 05/01/2017 Miriam Orozco R.N. Medication Administered: KCL [PO] (POTASSIUM CHLORIDE ER), Dose: 20 meq Tablets PO. Medication Ordered: KCl PO 20 meq (NOW).
== END 2017-05-01 18:55 | disposition home or self-care (01) ==
LOC: ED SRH 15:34
DX: R55 Syncope and collapse (principal); Z88.1 Allergy status to other antibiotic agents; R50.9 Fever, unspecified; G89.29 Other chronic pain; E87.6 Hypokalemia; E07.9 Disorder of thyroid, unspecified; Z79.899 Other long term (current) drug therapy; Z79.891 Long term (current) use of opiate analgesic; Z88.0 Allergy status to penicillin; Z88.5 Allergy status to narcotic agent
CPT/HCPCS: 90004; 90100; 92010; 92235; 92530; 92760; 92761; 92762; 92763; 92764; 92765; 92766; 92767; 92780; 95059; 97000